=== PATIENT | female | born 1990 ===

== ENCOUNTER 2019-09-25 16:44 | Emergency (ER) | payer OTHER ==
[2019-09-25] MEDS ORDERED: ONDANSETRON 4 MG/2 ML VIAL ONE (17:41)
[2019-09-25] MEDS ORDERED: NA CHLORIDE 0.9% 1,000 ML ONE (17:41)
[2019-09-25 17:57] LABS: Absolute Lymphocytes (CBC) 2.1 K/uL (0.7-4.9); Basophils % 0.5 % (0-1.3); Hematocrit 40.3 % (36.0-45.0); Lymphocytes % 17.3 % (15.3-44.8); MPV 10.2 fL (7.6-11.3); RBC Red Blood Cell Count 4.38 M/uL (3.86-4.86)
[2019-09-25 18:25] LABS: BUN Blood Urea Nitrogen 10 mg/dL (7-18); Bicarbonate 28 mmol/L (21-32); Glucose Level 132 mg/dL (74-106); HCG, Quantitative 58759 mIU/mL (1-3); Potassium 3.5 mmol/L (3.5-5.1); Sodium Level 138 mmol/L (136-145)
[2019-09-25 18:26] LABS: Urine Blood TRACE (NEG); Urine Glucose NEGATIVE (NEG); Urine Protein 1+ (NEG); Urine Specific Gravity 1.025 (1.005-1.030)
--- NOTE | 2019-09-25 18:54 | RAD REPORT ---
EXAM DESCRIPTION: US - Abdomen Exam Limited - 09/25/2019 6:43 pm CLINICAL HISTORY: Abdominal pain. COMPARISON: None. FINDINGS: The gallbladder wall is not thickened. A gallstone is not seen. The biliary tree is normal caliber. IMPRESSION: Unremarkable gallbladder ultrasound.
--- NOTE | 2019-09-25 18:56 | RAD REPORT ---
EXAM DESCRIPTION: US - 1St Trimest Single 1St Fetus - 09/25/2019 6:43 pm CLINICAL HISTORY: with pelvic pain COMPARISON: None. FINDINGS: The uterus measures 8 x 6 x 7 centimeters. A normal appearing gestational sac is present within the endometrium. Within this is a yolk sac and pole with a crown-rump length 8 millimete rs. Cardiac activity 120 beats per minute. No subchorionic bleed Right and left ovary appear normal. . An adnexal mass is not noted. No significant free fluid is seen. IMPRESSION: Single live intrauterine with an estimated gestational age 7 weeks 1 day JASON 05/12/2020
--- NOTE | 2019-09-26 00:41 | ER ---
Nurse's Notes [facility] Name: Ravindra Newton Age: 29 yrs Sex: Female : 1990 Arrival Date: 09/25/2019 Time: 16:46 Bed 13 Private MD: Diagnosis: Vomiting Presentation: 09/25 16:55 Presenting complaint: states: about 3-4 wks. Vomiting since 7-10 days. ca1 Epigastric pain x 3 days. Pt can't hold anything down. Transition of care: patient was not received from another setting of care. Onset of symptoms was September 25, 2019. Risk Assessment: Do you want to hurt yourself or someone else? Patient reports no desire to harm self or others. Initial Sepsis Screen: Does the patient meet any 2 criteria? No. Patient's initial sepsis screen is negative. Does the patient have a suspected source of infection? No. Patient's initial sepsis screen is negative. Care prior to arrival: None. 16:55 Method Of Arrival: Ambulatory ca1 16:55 Acuity: MARCIE 3 ca1 MANAGER FLOOR: 16:58 LMP 08/17/2019 ca1 Historical: - Allergies: 16:58 No Known Allergies; ca1 - Home Meds: 16:58 None [Active]; ca1 - PMHx: 16:58 None; ca1 - PSHx: 16:58 None; ca1 - Immunization history:: Adult Immunizations not up to date, Flu vaccine is not up to date. - Coronavirus screen:: The patient has NOT traveled to [place] in the past 14 days. The patient has NOT had contact with known/suspected case of Coronavirus?. - Social history:: Smoking status: Patient denies any tobacco usage or history of. - Ebola Screening: : Patient negative for fever greater than or equal to 101.5 degrees Fahrenheit, and additional compatible Ebola Virus Disease symptoms Patient denies exposure to infectious person Patient denies travel to an Ebola-affected area in the 21 days before illness onset No symptoms or risks identified at this time. Screenin:15 Abuse screen: Denies threats or abuse. Denies injuries from another. Nutritional ca1 screening: No deficits noted. Tuberculosis screening: No symptoms or risk factors identified. Fall Risk IV access (20 points). Assessment: 17:15 General: Appears in no apparent distress. comfortable, Behavior is calm, cooperative, ca1 appropriate for age. Pain: Complains of pain in epigastric area Pain currently is 5 out of 10 on a pain scale. Pain began 2-3 days ago. Is intermittent. Neuro: Level of Consciousness is awake, alert, obeys commands, Oriented to person, place, time, situation, Appropriate for age. Cardiovascular: Heart tones S1 S2 present Capillary refill < 3 seconds Patient's skin is warm and dry. Respiratory: Airway is patent Respiratory effort is even, unlabored, Respiratory pattern is regular, symmetrical, Breath sounds are clear bilaterally. GI: Abdomen is flat, non-distended, Bowel sounds present X 4 quads. Abd is soft X 4 quads Abdomen is tender to palpation in epigastric area Reports vomiting, since 7-10 days. : Urine is clear. EENT: No deficits noted. No signs and/or symptoms were reported regarding the EENT system. Derm: No deficits noted. No signs and/or symptoms reported regarding the dermatologic system. Musculoskeletal: Circulation, motion, and sensation intact. Capillary refill < 3 seconds. 18:30 Reassessment: Patient and/or family updated on plan of care and expected duration. Pain vc level reassessed. Patient is alert, oriented x 3, equal unlabored respirations, skin warm/dry/pink. 19:30 Reassessment: Patient and/or family updated on plan of care and expected duration. Pain vc level reassessed. Patient is alert, oriented x 3, equal unlabored respirations, skin warm/dry/pink. Patient states feeling better. 20:30 Reassessment: Patient and/or family updated on plan of care and expected duration. Pain vc level reassessed. Patient is alert, oriented x 3, equal unlabored respirations, skin warm/dry/pink. Patient denies pain at this time. Patient states feeling better. Patient states symptoms have improved. Vital Signs: 16:58 BP 104 / 75; Pulse 79; Resp 18 S; Temp 98.6(O); Pulse Ox 97% on R/A; Weight 55 kg (R); ca1 Height 5 ft. 2 in. (160 cm) (R); 18:00 BP 106 / 76; Pulse 80; Resp 18; Pulse Ox 98% on R/A; vc 19:00 BP 104 / 74; Pulse 82; Resp 18; Pulse Ox 98% on R/A; vc 20:00 BP 105 / 75; Pulse 80; Resp 18; Pulse Ox 98% on R/A; vc 16:58 Body Mass Index 21.48 (55.00 kg, 160 cm) ca1 ED Course: 16:46 Patient arrived in ED. as 16:56 Triage completed. ca1 16:58 Arm band placed on right wrist. ca1 17:08 Stevo Boyle PA is PHCP. chico 17:08 Clinton Will MD is Attending Physician. m 17:15 Patient has correct armband on for positive identification. Placed in gown. Bed in low ca1 position. Call light in reach. Side rails up X 1. Pulse ox on. NIBP on. Warm blanket given. 17:42 No provider procedures requiring assistance completed. Initial lab(s) drawn, by mo, ca1 sent to lab. Inserted saline lock: 20 gauge in right antecubital area, using aseptic technique. Blood collected. 18:42 Ultrasound completed. Patient tolerated well. sg3 18:47 US 1st Trimest Single 1st Fetus In Process Unspecified. EDMS 18:47 US Abdomen Limited In Process Unspecified. EDMS 19:51 Danette Harman, FIDELIA is Primary Nurse. vc 20:45 IV discontinued, intact, bleeding controlled, No redness/swelling at site. Pressure vc dressing applied. Administered Medications: 17:41 Drug: Zofran 4 mg Route: IVP; Site: right antecubital; ca1 20:31 Follow up: Response: No adverse reaction vc 17:44 Drug: NS 0.9% 1000 ml Route: IV; Rate: 1 bolus; Site: right antecubital; ca1 18:44 Follow up: IV Status: Completed infusion; IV Intake: 1000ml vc Intake: 18:44 IV: 1000ml; Total: 1000ml. vc Outcome: 20:22 Discharge ordered by . jmm 20:50 Discharged to home ambulatory, with significant other. vc 20:50 Condition: improved 20:50 Discharge instructions given to significant other, Instructed on discharge instructions, follow up and referral plans. medication usage, Demonstrated understanding of instructions, follow-up care, medications, Prescriptions given X 1. 20:52 Patient left the ED. vc Signatures: Dispatcher [employer] EDMS Stevo Boyle PA PA jmm Martinez, Amelia as Godinez, Sarah sg3 Acob, Angela, RN RN ca1 Calcote, Danette, RN RN vc
--- NOTE | 2019-09-26 00:42 | EDPHYS ---
Physician Documentation [facility] Name: Ravindra Newton Age: 29 yrs Sex: Female : 1990 Arrival Date: 09/25/2019 Time: 16:46 Bed 13 Private MD: ED Physician Clinton Will HPI: 09/25 17:18 This 29 yrs old Female presents to ER via Ambulatory with complaints of Vomiting. jmm 17:18 The patient presents to the emergency department with nausea, vomiting, abdominal pain, jmm of the epigastric area. Onset: The symptoms/episode began/occurred gradually, 3 day(s) ago. Possible causes: . The symptoms are aggravated by nothing. The symptoms are alleviated by nothing. This is a approx 4 weeks that present to the ED with complaints of vomiting and epigastric abdominal pain. Denies fever. Denies recent travel. [employer]: 16:58 LMP 08/17/2019 ca1 Historical: - Allergies: 16:58 No Known Allergies; ca1 - Home Meds: 16:58 None [Active]; ca1 - PMHx: 16:58 None; ca1 - PSHx: 16:58 None; ca1 - Immunization history:: Adult Immunizations not up to date, Flu vaccine is not up to date. - Coronavirus screen:: The patient has NOT traveled to [place] in the past 14 days. The patient has NOT had contact with known/suspected case of Coronavirus?. - Social history:: Smoking status: Patient denies any tobacco usage or history of. - Ebola Screening: : Patient negative for fever greater than or equal to 101.5 degrees Fahrenheit, and additional compatible Ebola Virus Disease symptoms Patient denies exposure to infectious person Patient denies travel to an Ebola-affected area in the 21 days before illness onset No symptoms or risks identified at this time. ROS: 17:18 Constitutional: Negative for fever, chills, and weight loss, Cardiovascular: Negative jmm for chest pain, palpitations, and edema, Respiratory: Negative for shortness of breath, cough, wheezing, and pleuritic chest pain. 17:18 Abdomen/GI: Positive for abdominal pain, nausea and vomiting. Exam: 17:18 Constitutional: This is a well developed, well nourished patient who is awake, alert, jmm and in no acute distress. Head/Face: atraumatic. Eyes: EOMI, no conjunctival erythema appreciated ENT: Moist Mucus Membranes Neck: Trachea midline, Supple Chest/axilla: Normal chest wall appearance and motion. Cardiovascular: Regular rate and rhythm. No edema appreciated Respiratory: Normal respirations, no respiratory distress appreciated 17:18 Abdomen/GI: Inspection: abdomen appears normal, Bowel sounds: normal, Palpation: soft, mild abdominal tenderness, in the right upper quadrant. 17:18 Back: pain, is absent, CVA tenderness, is absent. 17:18 Musculoskeletal/extremity: ROM: intact in all extremities. 17:18 Skin: Appearance: Color: normal in color. 17:18 Neuro: Orientation: is normal, Mentation: is normal, Memory: is normal. 17:18 Psych: Behavior/mood is pleasant, cooperative. Vital Signs: 16:58 BP 104 / 75; Pulse 79; Resp 18 S; Temp 98.6(O); Pulse Ox 97% on R/A; Weight 55 kg (R); ca1 Height 5 ft. 2 in. (160 cm) (R); 18:00 BP 106 / 76; Pulse 80; Resp 18; Pulse Ox 98% on R/A; vc 19:00 BP 104 / 74; Pulse 82; Resp 18; Pulse Ox 98% on R/A; vc 20:00 BP 105 / 75; Pulse 80; Resp 18; Pulse Ox 98% on R/A; vc 16:58 Body Mass Index 21.48 (55.00 kg, 160 cm) ca1 MDM: 17:18 Patient medically screened. [facility] 20:20 Data reviewed: vital signs, nurses notes. Counseling: I had a detailed discussion with chico the patient and/or guardian regarding: the historical points, exam findings, and any diagnostic results supporting the discharge/admit diagnosis, lab results, the need for outpatient follow up, to return to the emergency department if symptoms worsen or persist or if there are any questions or concerns that arise at home. ED course: Patient is able to tolerate PO in the ED. Abdominal pain has resolved. Imaging studies normal. Patient is advised to follow up with ob and otherwise given strict return precautions including early appendicitis. Patient understood and agrees with the plan of care. . 09/25 17:28 Order name: Quantitative Hcg; Complete Time: 18:29 chico 09/25 17:28 Order name: Abo/rh Typing; Complete Time: 18:19 [facility] 09/25 17:28 Order name: Basic Metabolic Panel; Complete Time: 18:29 [facility] 09/25 17:28 Order name: CBC with Diff; Complete Time: 18:19 [facility] 09/25 18:09 Order name: Urine Dipstick--Ancillary (enter results); Complete Time: 18:29 ms 09/25 18:09 Order name: Urine --Ancillary (enter results); Complete Time: 18:29 ms 09/25 17:28 Order name: Urine Test (obtain specimen); Complete Time: 18:00 [facility] 09/25 17:28 Order name: IV Saline Lock; Complete Time: 17:44 [facility] 09/25 17:28 Order name: Labs collected and sent; Complete Time: 17:44 [facility] 09/25 17:28 Order name: NPO; Complete Time: 17:44 [facility] 09/25 17:29 Order name: 1st Trimest Single 1st Fetus [facility] 09/25 17:29 Order name: US Abdomen Limited [facility] 09/25 17:28 Order name: Urine Dipstick-Ancillary (obtain specimen); Complete Time: 18:00 [facility] 09/25 19:46 Order name: PO challenge; Complete Time: 20:31 jm Administered Medications: 17:41 Drug: Zofran 4 mg Route: IVP; Site: right antecubital; ca1 20:31 Follow up: Response: No adverse reaction vc 17:44 Drug: NS 0.9% 1000 ml Route: IV; Rate: 1 bolus; Site: right antecubital; ca1 18:44 Follow up: IV Status: Completed infusion; IV Intake: 1000ml vc Disposition: 09/25/19 20:22 Discharged to Home. Impression: Vomiting. - Condition is Stable. - Discharge Instructions: Hyperemesis Gravidarum, Eating Plan for Hyperemesis Gravidarum. - Prescriptions for Zofran ODT 4 mg Oral tablet,disintegrating - place 1 tablet by TRANSLINGUAL route every 4-6 hours; 20 tablet. - Medication Reconciliation Form, Thank You Letter, Antibiotic Education, Prescription Opioid Use form. - Follow up: Private Physician; When: 2 - 3 days; Reason: Recheck today's complaints, Continuance of care, Re-evaluation by your physician. - Notes: You can take over the counter Doxylamine (unisom) and vitamin B6 twice a day to help alleviate symptoms. Please return to the Emergency Department if you develop increased pain, increased vomiting, or if you have any other concerns. Addendum: 09/27/2019 19:05 Co-signature as Attending Physician, Clinton Will MD. r n Signatures: Dispatcher [employer] EDMS Stevo Bolye PA PA jmm Nieto, Roman, MD MD rn Angela Xie RN RN ca1 Danette Harman RN RN vc Corrections: (The following items were deleted from the chart) 09/25 20:52 20:22 09/25/2019 20:22 Discharged to Home. Impression: Vomiting. Condition is Stable. vc Forms are Medication Reconciliation Form, Thank You Letter, Antibiotic Education, Prescription Opioid Use. Follow up: Private Physician; When: 2 - 3 days; Reason: Recheck today's complaints, Continuance of care, Re-evaluation by your physician. chico
[2019-09-26 02:22] VITALS: TEMP 98.6
[2019-09-26 02:23] VITALS: O2SAT 98
[2019-09-26 02:26] VITALS: BP 105/75
== END 2019-09-25 20:52 | disposition home or self-care (01) ==
LOC: ER 16:44
DX: O21.0 Mild hyperemesis gravidarum (principal); Z3A.01 Less than 8 weeks gestation of pregnancy
CPT/HCPCS: 96361; 85025; 80048; 36415; 86900; 81025; 86901; 84702; 81003; 76705; 76801; 96374; 99284; J7030; J2405